=== PATIENT | male | born 1935 | race Caucasian/White ===

== ENCOUNTER 2016-02-03 08:30 | Inpatient (IN) | payer MEDICARE, MEDICAID ==
[2016-02-03 09:33] VITALS: BP 136/70
[2016-02-03 11:31] LABS: CREATINE KINASE MB 17.4 ng/mL (0.6-6.3)
--- NOTE | 2016-02-03 13:57 | History & Physical ---
The patient seen and examined. CHIEF COMPLAINT: Unable to get meaningful history. HISTORY SOURCE: Reviewing the chart, talking to the nursing staff at the [facility]. HISTORY OF PRESENT ILLNESS: An 80-year-old male who was living at home has an underlying diagnosis of Alzheimer dementia, noted to have aggressive behavior with increasing confusion. The patient was initially presented to [facility] where the patient was medically cleared and transferred here for further management. PAST MEDICAL HISTORY: ____ the chart as hyperlipidemia and osteoarthritis, but negative for diabetes, hypertension, kidney disease. MEDICATIONS AT HOME: The patient was not taking any medication. ALLERGIES: The patient was not allergic to medications. SOCIAL HISTORY: The patient was living at home. The patient has no history of any alcohol use. No smoking use. FAMILY MEDICAL HISTORY: Unavailable. REVIEW OF SYSTEMS: Unable to obtain meaningful history from the patient. PHYSICAL EXAMINATION: GENERAL: The patient is alert, awake, extremely agitated and confused. VITAL SIGNS: Temperature 98, pulse is 74, respiratory rate 18, blood pressure 157/99. SKIN: Warm to touch. HEENT: Normocephalic, atraumatic. Extraocular muscles are intact. Tongue was pink and coated. NECK: Supple, no JVD, no hepatojugular reflux. No lymphadenopathy, thyromegaly or carotid bruit. HEART: Both heart sounds are regular. No S3, no S4. CHEST: Lung equal in expansion, no wheezing, no crackles. ABDOMEN: Soft. No guarding, rigidity. Liver, spleen palpable. No palpable mass. EXTREMITIES: No edema, no cyanosis. NEUROLOGIC: Alert, awake, very hostile and moving upper and lower extremity. AVAILABLE DIAGNOSTIC DATA: White count of 6.2, hemoglobin 14.2, platelet count of 138. BUN and creatinine is ____ and 1.1. Electrolytes are normal. Calcium is 8.9. I was unable to get the patient's EKG and chest x-ray along with CT head. CLINICAL IMPRESSION: 1. Alzheimer's type dementia with agitation. 2. Hyperlipidemia. 3. Ruled out medical etiology for agitations. PLAN: 1. Admit, psychiatric evaluation and management deferred to psychiatrist. 2. B12, folate, TSH, JAMI, ESR, RA, CPK along with noncontrast CT scan of the head will be obtained as well. We will give the p.r.n. blood pressure medications as well for the hypertension. The patient's psychiatric evaluation and management is deferred to psychiatrist. The patient will be followed by us during the stay at the hospital. JOB# [id number]
[2016-02-03] MEDS: OLANZapine 5 mg Oral Disintegrating Tab PO SCH (20:57)
--- NOTE | 2016-02-04 06:07 | Psychosocial Evaluation ---
IDENTIFICATION: The patient is an 80-year-old male admitted on 5150. HISTORY OF PRESENT ILLNESS: The patient was admitted for psychiatric evaluation. He was at a residence, 911 call was placed to police officers as he was out of control, flipping over ____ hitting family members. The patient was determined by police to be suffering from dementia, lacking ability to reason. When the police arrived, the patient had limited communication, does not recognize his family. He is violent at times. He is striking out. He is taken to outside hospital for evaluation. The patient remains ____, he does not know where he lives or who he lives with. He continues to be angry, says everyone around him is conspiring against him. He is ____ himself. He is depressed, anxious, nervous, and fearful. PAST PSYCHIATRIC HISTORY: Unknown at this time. PAST MEDICAL HISTORY: Please see current records. CURRENT MEDICATIONS: No psychotropics. SOCIAL HISTORY: Reportedly he was living with family. Denies drug or alcohol. MENTAL STATUS EXAMINATION: Alert and oriented to self only. Speech is pressured and confused. Thought content is positive for paranoid delusions ____ anxious ____ extremely poor. ____ Memory testing ____ cannot cooperate any cognitive testing ____. DIAGNOSES: AXIS I: Psychosis, not otherwise specified. Dementia, Alzheimers type. AXIS II: Deferred. AXIS III: Deferred. PLAN: At this time, admit to inpatient unit for medication management, group therapy, and individual therapy. ESTIMATED LENGTH OF STAY: 7-10 days. DISCHARGE CRITERIA: Stable medications with adequate discharge plan. JOB# [id number]
[2016-02-04] MEDS: Aspirin 81mg Chewable Tab PO SCH (09:14)
[2016-02-04 10:46] LABS: CREATINE KINASE MB 17.5 ng/mL (0.6-6.3)
[2016-02-04] MEDS: OLANZapine 5 mg Oral Disintegrating Tab PO SCH (21:02)
[2016-02-05] MEDS: Aspirin 81mg Chewable Tab PO SCH ×2 (08:14→08:17)
[2016-02-05] MEDS ORDERED: Haloperidol Lactate 5 mg/mL 1mL Vial IM ONE (08:37)
--- NOTE | 2016-02-05 16:08 | Progress Notes ---
The patient is seen in the Inpatient Unit. The patient is on trial medications for severe psychosis, initiated on trial of Zyprexa with Remeron for depression. The patient continues to have poor communication skills with limited insight. He is presenting with potential dangerous behavior including trying to strike out at staff, putting objects in his pants. He is highly disorganized, does not know where he is. He is telling me that he needs to leave. He has a history of violent behavior and being destructive towards his family members. He has been hitting family. They were unable to take care of him at this time. Plan is to titrate medications for symptom relief. Continue his trial of Zyprexa, monitor for side effects including EPS, tardive dyskinesia. We will monitor his vital signs and his laboratory values as well as medical condition. Review of laboratory values indicates a CPK elevated at 944, CK-MB of 17. We will refer to medical physical for followup. He is afebrile at this time, however. We will work with the patient and his family regarding after care planing, recommend supportive care and supervision following discharge, consider [facility] facility. We will work closely with his family to integrate services. We will place the patient on a 14-day hold for grave disability, monitor for aggression and side effects of medication. JOB# [id number]
[2016-02-05] MEDS: OLANZapine 5 mg Oral Disintegrating Tab PO SCH (20:52)
--- NOTE | 2016-02-06 08:34 | Progress Notes ---
The patient is seen in the inpatient unit. The patient is on a trial of medications for psychotic features. He is extremely irritable, still violent, trying to break things or get out of his bed and striking out. He is aggressive, threatening to assault peers and staff. He is very demanding, argumentative. He says he wants to leave, does not know where to go. MENTAL STATUS EXAMINATION: He is oriented to time and self only. Speech is minimal and confused. Thought content is positive for paranoid delusions, ____ and history of aggression, threatening to assault people in his home. Family cannot take care of him given his threatening behavior and destruction of property. At this time, he ____ want to take medications, on trial of Zyprexa, he has no side effects. He has received p.r.n. Haldol for aggressive behavior, for escalation, he has had no side effects, except for sedation. Neurologic exam is nonfocal. He does have some mild tremor. It is difficult to determine tremor as he is not cooperative with examination as he is persistently agitated. Status at this time is 5350, 14-day hold. PLAN: Titrate Zyprexa to 5 mg at bedtime and monitor for side effects including sedation, change in appetite, energy or focus and control psychosis. He may benefit from a stabilizing agent or an antianxiety agent given his high level of agitation. We encouraged compliance, work with him in group therapy and individual therapy. I met with social work to assess care planning. Family indicates they are unable to have him return home at this time given his escalation in behavior. We will consider placement at an appropriate long-term facility following stabilization. [facility]# [id number]
[2016-02-06] MEDS: Aspirin 81mg Chewable Tab PO SCH (09:36)
[2016-02-06 13:26] LABS: ANION GAP 11.2 (7.0-16.0); BUN - UREA NITROGEN 39 mg/dL (7-25); BUN/CREATININE RATIO 32.5; CALCIUM SERUM 9.8 mg/dL (8.6-10.3); CARBON DIOXIDE 28.9 mEq/L (21.0-31.0); CHLORIDE 105 mEq/L (98-107); CREATININE - SERUM 1.2 mg/dL (0.7-1.3); GLUCOSE 104 mg/dL (70-105); POTASSIUM SERUM 4.1 mEq/L (3.5-5.1); SODIUM SERUM 141 mEq/L (136-145)
[2016-02-06 14:23] LABS: CREATINE KINASE MB 46.3 ng/mL (0.6-6.3)
[2016-02-06] MEDS: OLANZapine 5 mg Oral Disintegrating Tab PO SCH (20:36)
--- NOTE | 2016-02-06 21:15 | Progress Notes ---
SUBJECTIVE: The patient was seen, discussed with staff, and chart reviewed. Remains anxious, guarded, still irritable, and somewhat paranoid. The patient, however, is taking his medications, has no side effects. The patient remains confused and forgetful, poor memory testing. ASSESSMENT: Psychosis, not otherwise specified, dementia, Alzheimer's type. PLAN: We will continue medication management, continue stabilization, and continue supportive measures. Continue Zyprexa 5 mg p.o. at bedtime. [facility]# [id number]
[2016-02-07] MEDS: Aspirin 81mg Chewable Tab PO SCH (09:41)
--- NOTE | 2016-02-07 12:46 | General Progress Note ---
Subjective - Review of Systems Subjective: PATIENT IS SEEN AND EXAMINED. UNABLE TO GET MEANINGFUL HISTORY. AMBULATING. Objective - Results Result Diagrams: 02/06/16 12:39 Recent Labs: Laboratory Last Values ESR 5 mm/hr (0-20) 02/03/16 10:30 Sodium 141 mEq/L (136-145) 02/06/16 12:39 Potassium 4.1 mEq/L (3.5-5.1) 02/06/16 12:39 Chloride 105 mEq/L (98-107) 02/06/16 12:39 Carbon Dioxide 28.9 mEq/L (21.0-31.0) 02/06/16 12:39 Anion Gap 11.2 (7.0-16.0) 02/06/16 12:39 BUN 39 mg/dL (7-25) H 02/06/16 12:39 Creatinine 1.2 mg/dL (0.7-1.3) 02/06/16 12:39 Est GFR ( Amer) TNP 02/06/16 12:39 Est GFR (Non-Af Amer) TNP 02/06/16 12:39 BUN/Creatinine Ratio 32.5 02/06/16 12:39 Glucose 104 mg/dL (70-105) 02/06/16 12:39 Calcium 9.8 mg/dL (8.6-10.3) 02/06/16 12:39 Creatine Kinase 791 U/L (30-223) H 02/07/16 07:48 CK-MB (CK-2) 28.0 ng/mL (0.6-6.3) H 02/07/16 07:48 Vitamin B12 1058 pg/mL (211-946) H 02/03/16 10:30 Folic Acid 20.0 ng/mL (>3.0) 02/03/16 10:30 TSH 4.40 uIU/ml (0.34-5.60) 02/03/16 10:30 JAMI Screen Negative 02/03/16 10:30 RPR NONREACTIVE (NONREACTIVE) 02/03/16 10:30 - Physical Exam Vitals and I&O: Vital Signs Temp 98.3 F 02/06/16 15:44 Pulse 83 02/07/16 09:41 Resp 19 02/06/16 15:44 BP 135/65 02/07/16 09:41 Pulse Ox 97 02/06/16 15:44 Intake & Output 02/06/16 02/07/16 02/07/16 18:59 06:59 18:59 Intake Total 500 Balance 500 Intake: Oral 500 Other: # Voids 3 # Bowel Movements 1 Active Medications: Current Medications Acetaminophen (Tylenol) 650 mg PO Q6H PRN PRN Reason: Pain (Mild) Stop: 04/03/16 10:07 Aspirin (Aspirin Chewable) 81 mg PO DAILY [facility] Stop: 04/04/16 08:59 Last Admin: 02/07/16 09:41 Dose: 81 mg Lisinopril (Zestril) 2.5 mg PO DAILY [facility] Stop: 04/04/16 08:59 Last Admin: 02/07/16 09:41 Dose: 2.5 mg Olanzapine (Zyprexa Zydis) 5 mg PO HS [facility] PRN Reason: Protocol Stop: 04/05/16 11:28 Last Admin: 02/06/16 20:36 Dose: 5 mg General: Alert, No acute distress HEENT: Atraumatic, PERRLA, EOMI Neck: Supple, JVD Cardiovascular: Regular rate, Normal S1, Normal S2 Lungs: Clear to auscultation Abdomen: Bowel sounds, Soft Neurological: Normal gait Skin: Other (No bruises.) Psych/Mental Status: Other (Labile.) Assessment/Plan - Assessment Assessment: RHABDOMYOLYSIS. ALZHEIMER'S DEMENTIA. DJD HTN PSYCHOSIS FALL RISK - Plan Plan: PLENTY OF ORALLY FLUIDS. PSYCH MEDS PSYCH FOLLOW UP FOLLOW LAB GENERAL NURSING CARE MEDICAL THERAPY FOR MEDICAL ILLNESS. CONTINUE CURRENT CARE. DISCUSSED WITH STAFF.
[2016-02-07] MEDS: OLANZapine 5 mg Oral Disintegrating Tab PO SCH (20:37)
--- NOTE | 2016-02-08 04:48 | Progress Notes ---
SUBJECTIVE: The patient was seen, discussed with staff, chart is reviewed. Still anxious, guarded, still irritable, some mood swings, episodes of agitations, remains unpredictable; however, on the other hand, he is taking his medication, sleep is fair, his appetite is fair. His vital signs are stable. The patient's insight remains poor. Judgment is still impaired. ASSESSMENT: The patient continues to stabilize in a setting. PLAN: Continue medication management. Continue supportive measures. Continue Zyprexa 5 mg p.o. at bedtime. JOB# [id number]
[2016-02-08] MEDS: Aspirin 81mg Chewable Tab PO SCH (08:26)
--- NOTE | 2016-02-08 08:49 | General Progress Note ---
Subjective - Review of Systems Subjective: PATIENT IS SEEN AND EXAMINED. UNABLE TO GET MEANINGFUL HISTORY. Objective - Results Result Diagrams: 02/06/16 12:39 Recent Labs: Laboratory Last Values ESR 5 mm/hr (0-20) 02/03/16 10:30 Sodium 141 mEq/L (136-145) 02/06/16 12:39 Potassium 4.1 mEq/L (3.5-5.1) 02/06/16 12:39 Chloride 105 mEq/L (98-107) 02/06/16 12:39 Carbon Dioxide 28.9 mEq/L (21.0-31.0) 02/06/16 12:39 Anion Gap 11.2 (7.0-16.0) 02/06/16 12:39 BUN 39 mg/dL (7-25) H 02/06/16 12:39 Creatinine 1.2 mg/dL (0.7-1.3) 02/06/16 12:39 Est GFR ( Amer) TNP 02/06/16 12:39 Est GFR (Non-Af Amer) TNP 02/06/16 12:39 BUN/Creatinine Ratio 32.5 02/06/16 12:39 Glucose 104 mg/dL (70-105) 02/06/16 12:39 Calcium 9.8 mg/dL (8.6-10.3) 02/06/16 12:39 Creatine Kinase 791 U/L (30-223) H 02/07/16 07:48 CK-MB (CK-2) 28.0 ng/mL (0.6-6.3) H 02/07/16 07:48 Vitamin B12 1058 pg/mL (211-946) H 02/03/16 10:30 Folic Acid 20.0 ng/mL (>3.0) 02/03/16 10:30 TSH 4.40 uIU/ml (0.34-5.60) 02/03/16 10:30 JAMI Screen Negative 02/03/16 10:30 RPR NONREACTIVE (NONREACTIVE) 02/03/16 10:30 - Physical Exam Vitals and I&O: Vital Signs Temp 0 F 02/08/16 06:14 Pulse 81 02/08/16 08:26 Resp 20 02/07/16 16:08 BP 130/62 02/08/16 08:26 Pulse Ox 97 02/07/16 16:08 Intake & Output 02/07/16 02/08/16 02/08/16 18:59 06:59 18:59 Intake Total 1000 0 Balance 1000 0 Intake: Oral 1000 0 Other: # Voids 3 4 # Bowel Movements 1 0 Stool Characteristics Soft Formed Active Medications: Current Medications Acetaminophen (Tylenol) 650 mg PO Q6H PRN PRN Reason: Pain (Mild) Stop: 04/03/16 10:07 Aspirin (Aspirin Chewable) 81 mg PO DAILY [facility] Stop: 04/04/16 08:59 Last Admin: 02/08/16 08:26 Dose: 81 mg Lisinopril (Zestril) 2.5 mg PO DAILY [facility] Stop: 04/04/16 08:59 Last Admin: 02/08/16 08:26 Dose: 2.5 mg Olanzapine (Zyprexa Zydis) 5 mg PO HS [facility] PRN Reason: Protocol Stop: 04/05/16 11:28 Last Admin: 02/07/16 20:37 Dose: 5 mg General: Alert, No acute distress HEENT: Atraumatic, PERRLA, EOMI Neck: Supple Cardiovascular: Regular rate, Normal S1, Normal S2 Lungs: Clear to auscultation Abdomen: Bowel sounds, Soft Extremities: Other (no edema.) Assessment/Plan - Assessment Assessment: RHABDOMYOLYSIS. ALZHEIMER'S DEMENTIA. DJD HTN PSYCHOSIS FALL RISK - Plan Plan: PLENTY OF ORALLY FLUIDS. PSYCH MEDS. PSYCH FOLLOW UP. FOLLOW LAB. GENERAL NURSING CARE MEDICAL THERAPY FOR MEDICAL ILLNESS. CONTINUE CURRENT CARE. DISCUSSED WITH STAFF.
[2016-02-08] MEDS: OLANZapine 5 mg Oral Disintegrating Tab PO SCH (20:08)
[2016-02-09] MEDS: Aspirin 81mg Chewable Tab PO SCH (09:17)
--- NOTE | 2016-02-09 13:41 | Progress Notes ---
The patient is seen in inpatient unit. The patient is on a trial of medications for acute psychosis, severe agitation, irritability, labile mood. He is still ____ confused, very demanding, argumentative, restless. He has no ____ care for himself, minimal insight. We will be monitoring medications, monitoring vital signs and neurologic status. Most recent vital signs are stable. He has no change in temperature. Temperature is 97.6 and blood pressure 126/69. Review of systems is negative for complaints. PLAN: At this time, we will continue to trial of Zyprexa, monitor for psychotic features, for resistance to care and for side effects of medication. JOB# [id number]
[2016-02-09] MEDS: OLANZapine 5 mg Oral Disintegrating Tab PO SCH (17:43)
[2016-02-10] MEDS: OLANZapine 5 mg Oral Disintegrating Tab PO SCH ×2 (08:19→17:47)
[2016-02-10] MEDS: Aspirin 81mg Chewable Tab PO SCH (08:19)
--- NOTE | 2016-02-10 09:17 | General Progress Note ---
Subjective - Review of Systems Subjective: PATIENT IS SEEN AND EXAMINED. UNABLE TO GET MEANINGFUL HISTORY. FAMILY IS ASKING ABOUT,CT RRESULT. IT WAS NOT DONE. Objective - Results Result Diagrams: 02/06/16 12:39 Recent Labs: Laboratory Last Values ESR 5 mm/hr (0-20) 02/03/16 10:30 Sodium 141 mEq/L (136-145) 02/06/16 12:39 Potassium 4.1 mEq/L (3.5-5.1) 02/06/16 12:39 Chloride 105 mEq/L (98-107) 02/06/16 12:39 Carbon Dioxide 28.9 mEq/L (21.0-31.0) 02/06/16 12:39 Anion Gap 11.2 (7.0-16.0) 02/06/16 12:39 BUN 39 mg/dL (7-25) H 02/06/16 12:39 Creatinine 1.2 mg/dL (0.7-1.3) 02/06/16 12:39 Est GFR ( Amer) TNP 02/06/16 12:39 Est GFR (Non-Af Amer) TNP 02/06/16 12:39 BUN/Creatinine Ratio 32.5 02/06/16 12:39 Glucose 104 mg/dL (70-105) 02/06/16 12:39 Calcium 9.8 mg/dL (8.6-10.3) 02/06/16 12:39 Creatine Kinase 791 U/L (30-223) H 02/07/16 07:48 CK-MB (CK-2) 28.0 ng/mL (0.6-6.3) H 02/07/16 07:48 Vitamin B12 1058 pg/mL (211-946) H 02/03/16 10:30 Folic Acid 20.0 ng/mL (>3.0) 02/03/16 10:30 TSH 4.40 uIU/ml (0.34-5.60) 02/03/16 10:30 JAMI Screen Negative 02/03/16 10:30 RPR NONREACTIVE (NONREACTIVE) 02/03/16 10:30 - Physical Exam Vitals and I&O: Vital Signs Temp 0 F 02/10/16 06:27 Pulse 78 02/09/16 09:20 Resp 18 02/09/16 06:19 BP 110/68 02/09/16 09:20 Pulse Ox 98 02/09/16 06:19 Intake & Output 02/09/16 02/10/16 02/10/16 18:59 06:59 18:59 Intake Total 800 120 Balance 800 120 Intake: Oral 800 120 Other: # Voids 3 4 # Bowel Movements 1 0 Active Medications: Current Medications Acetaminophen (Tylenol) 650 mg PO Q6H PRN PRN Reason: Pain (Mild) Stop: 04/03/16 10:07 Aspirin (Aspirin Chewable) 81 mg PO DAILY [facility] Stop: 04/04/16 08:59 Last Admin: 02/10/16 08:19 Dose: 81 mg Lisinopril (Zestril) 2.5 mg PO DAILY [facility] Stop: 04/04/16 08:59 Last Admin: 02/10/16 08:19 Dose: Not Given Olanzapine (Zyprexa Zydis) 5 mg PO BID [facility] PRN Reason: Protocol Stop: 04/09/16 16:59 Last Admin: 02/10/16 08:19 Dose: 5 mg General: Alert, No acute distress HEENT: Atraumatic, PERRLA, EOMI, Mucous membr. moist/pink Neck: Supple, JVD Cardiovascular: Regular rate, Normal S1, Normal S2 Lungs: Clear to auscultation Abdomen: Bowel sounds Neurological: Normal gait Assessment/Plan - Assessment Assessment: RHABDOMYOLYSIS. ALZHEIMER'S DEMENTIA. DJD HTN PSYCHOSIS FALL RISK - Plan Plan: PLENTY OF ORALLY FLUIDS. PSYCH MEDS. PSYCH FOLLOW UP. FOLLOW LAB. GENERAL NURSING CARE MEDICAL THERAPY FOR MEDICAL ILLNESS. CONTINUE CURRENT CARE. DISCUSSED WITH STAFF.
[2016-02-10 09:45] LABS: HEMATOCRIT 45.5 % (39.0-49.0); HEMOGLOBIN 15.6 gm/dL (12.6-17.4); MEAN CELL VOLUME 87.6 fl (80-99); MEAN CORPUSCULAR HEMOGLOBIN 30.1 pg (27.0-31.0); MEAN CORPUSCULAR HGB CONC 34.3 pg (28.0-36.0); MEAN PLATELET VOLUME 9.4 fl; PLATELET COUNT 135 Th/cmm (150-400); RED CELL DISTRIBUTION WIDTH 12.9 % (11.5-20.0); WHITE BLOOD COUNT 6.3 Th/cmm (4.8-10.8)
[2016-02-10 10:08] LABS: BAND NEUTROPHILE 0 % (0-10); NEUTROPHILS 40 % (40-80); TOTAL CELLS COUNTED 100
[2016-02-10 10:26] LABS: ALB/GLOB RATIO 1.3 (1.0-1.8); ALKALINE PHOSPHATASE 47 U/L (34-104); BUN - UREA NITROGEN 32 mg/dL (7-25); BUN/CREATININE RATIO 26.7; CALCIUM SERUM 10.1 mg/dL (8.6-10.3); CARBON DIOXIDE 29.9 mEq/L (21.0-31.0); CHLORIDE 101 mEq/L (98-107); CREATININE - SERUM 1.2 mg/dL (0.7-1.3); GLUCOSE 98 mg/dL (70-105); SGOT 35 U/L (13-39); SGPT/ALT 19 U/L (7-52); SODIUM SERUM 138 mEq/L (136-145)
[2016-02-10 10:32] LABS: POTASSIUM SERUM 3.9 mEq/L (3.5-5.1)
[2016-02-10 10:49] LABS: CREATINE KINASE MB 17.8 ng/mL (0.6-6.3)
--- NOTE | 2016-02-10 11:57 | Progress Notes ---
The patient was seen on inpatient unit. He has severe psychosis. He is confused, agitated, irritable, and aggressive, at times labile, other times aggressive, destroying property. He was given a lunch tray. He took everything on it and threw it on the floor and destroyed everything on it, tearing it up into small pieces. He is at times pounding on staff and needs redirection constantly. He is on trial of Zyprexa. He has no side effects, no sedation, and no EPS. His vital signs are stable. Plan is to titrate the Zyprexa to 5 mg b.i.d. for acute psychosis. To work with the patient on his coping skills, on his redirectability and his agitation. We will continue to work with the patient and his family regarding aftercare planning. Met with social work and psychologist regarding [facility]pc care and goal, stabilization and placement. It is unclear if he can return home to family given his disposition towards aggression. JOB# [id number]
--- NOTE | 2016-02-11 07:58 | Progress Notes ---
The patient is seen in inpatient unit. The patient is still highly agitated, restless. He is still physically resistive towards care. At times, pushing people, grabbing things, taking things that do not belong to him, raising his voice, escalating. He is highly agitated, restless and confused. He is still easily agitated and aggressive, combative, talking to self and coherent, cannot take care of himself, ____ self care. He ____ at this time. He is on Zyprexa, titrated to 5 mg b.i.d. Continue to monitor for response to medication, continue augmentation with additional medications ____. JOB# [id number]
[2016-02-11] MEDS: OLANZapine 5 mg Oral Disintegrating Tab PO SCH ×2 (08:17→17:26)
[2016-02-11] MEDS: Aspirin 81mg Chewable Tab PO SCH (08:17)
--- NOTE | 2016-02-11 09:00 | General Progress Note ---
Subjective - Review of Systems Subjective: PATIENT IS SEEN AND EXAMINED. UNABLE TO GET MEANINGFUL HISTORY. Objective - Results Result Diagrams: 02/10/16 09:30 02/10/16 09:30 Recent Labs: Laboratory Last Values WBC 6.3 Th/cmm (4.8-10.8) 02/10/16 09:30 RBC 5.20 Mil/cmm (3.80-5.80) 02/10/16 09:30 Hgb 15.6 gm/dL (12.6-17.4) 02/10/16 09:30 Hct 45.5 % (39.0-49.0) 02/10/16 09:30 MCV 87.6 fl (80-99) 02/10/16 09:30 MCH 30.1 pg (27.0-31.0) 02/10/16 09:30 MCHC Differential 34.3 pg (28.0-36.0) 02/10/16 09:30 RDW 12.9 % (11.5-20.0) 02/10/16 09:30 Plt Count 135 Th/cmm (150-400) L 02/10/16 09:30 MPV 9.4 fl 02/10/16 09:30 Band Neutrophils % 0 % (0-10) 02/10/16 09:30 Neutrophils (Manual) 40 % (40-80) 02/10/16 09:30 Lymphocytes 45 % (20-50) 02/10/16 09:30 Monocytes 15 % (2-10) H 02/10/16 09:30 ESR 5 mm/hr (0-20) 02/03/16 10:30 Sodium 138 mEq/L (136-145) 02/10/16 09:30 Potassium 3.9 mEq/L (3.5-5.1) 02/10/16 09:30 Chloride 101 mEq/L (98-107) 02/10/16 09:30 Carbon Dioxide 29.9 mEq/L (21.0-31.0) 02/10/16 09:30 Anion Gap 11.0 (7.0-16.0) 02/10/16 09:30 BUN 32 mg/dL (7-25) H 02/10/16 09:30 Creatinine 1.2 mg/dL (0.7-1.3) 02/10/16 09:30 Est GFR ( Amer) TNP 02/10/16 09:30 Est GFR (Non-Af Amer) TNP 02/10/16 09:30 BUN/Creatinine Ratio 26.7 02/10/16 09:30 Glucose 98 mg/dL (70-105) 02/10/16 09:30 Calcium 10.1 mg/dL (8.6-10.3) 02/10/16 09:30 Total Bilirubin 1.0 mg/dL (0.3-1.0) 02/10/16 09:30 AST 35 U/L (13-39) 02/10/16 09:30 ALT 19 U/L (7-52) 02/10/16 09:30 Alkaline Phosphatase 47 U/L (34-104) 02/10/16 09:30 Creatine Kinase 370 U/L (30-223) H 02/10/16 09:30 CK-MB (CK-2) 17.8 ng/mL (0.6-6.3) H 02/10/16 09:30 Total Protein 7.8 gm/dL (6.0-8.3) 02/10/16 09:30 Albumin 4.4 gm/dL (4.2-5.5) 02/10/16 09:30 Globulin 3.4 gm/dL 02/10/16 09:30 Albumin/Globulin Ratio 1.3 (1.0-1.8) 02/10/16 09:30 Vitamin B12 1058 pg/mL (211-946) H 02/03/16 10:30 Folic Acid 20.0 ng/mL (>3.0) 02/03/16 10:30 TSH 4.40 uIU/ml (0.34-5.60) 02/03/16 10:30 JAMI Screen Negative 02/03/16 10:30 RPR NONREACTIVE (NONREACTIVE) 02/03/16 10:30 - Physical Exam Vitals and I&O: Vital Signs Temp 97.9 F 02/10/16 15:59 Pulse 99 02/10/16 15:59 Resp 21 02/10/16 15:59 BP 104/60 02/10/16 15:59 Pulse Ox 98 02/10/16 15:59 Intake & Output 02/10/16 02/11/16 02/11/16 18:59 06:59 18:59 Intake Total 1200 Balance 1200 Intake: Oral 1200 Active Medications: Current Medications Acetaminophen (Tylenol) 650 mg PO Q6H PRN PRN Reason: Pain (Mild) Stop: 04/03/16 10:07 Aspirin (Aspirin Chewable) 81 mg PO DAILY [facility] Stop: 04/04/16 08:59 Last Admin: 02/11/16 08:17 Dose: 81 mg Lisinopril (Zestril) 2.5 mg PO DAILY [facility] Stop: 04/04/16 08:59 Last Admin: 02/11/16 08:18 Dose: Not Given Olanzapine (Zyprexa Zydis) 5 mg PO BID [facility] PRN Reason: Protocol Stop: 04/09/16 16:59 Last Admin: 02/11/16 08:17 Dose: 5 mg General: Alert, Cooperative, No acute distress HEENT: Atraumatic, PERRLA, EOMI Neck: Supple Cardiovascular: Regular rate, Normal S1, Normal S2 Lungs: Clear to auscultation Abdomen: Bowel sounds, Soft Neurological: Normal gait Assessment/Plan - Assessment Assessment: RHABDOMYOLYSIS. ALZHEIMER'S DEMENTIA. DJD HTN PSYCHOSIS FALL RISK - Plan Plan: PLENTY OF ORALLY FLUIDS. PSYCH MEDS. PSYCH FOLLOW UP. FOLLOW LAB. GENERAL NURSING CARE MEDICAL THERAPY FOR MEDICAL ILLNESS. CONTINUE CURRENT CARE. DISCUSSED WITH STAFF.
--- NOTE | 2016-02-12 07:12 | Progress Notes ---
The patient was seen in inpatient unit. The patient continues to be highly agitated, irritable and confused. The patient has been wondering, has aggressive behavior, striking out, pushing at people, wondering at ____ room, taking their belongings. He can be verbally abusing because of high levels of aggression and redirectibility. He is on trial of Zyprexa. He has no side effects. He has had some improvement, but remains highly agitated. We will provide Depakote for wrinkles 250 mg t.i.d. and continue close observation. JOB# [id number]
[2016-02-12] MEDS: Aspirin 81mg Chewable Tab PO SCH (08:46)
[2016-02-12] MEDS: OLANZapine 5 mg Oral Disintegrating Tab PO SCH ×2 (08:47→17:22)
--- NOTE | 2016-02-13 05:45 | Progress Notes ---
PSYCHIATRIC PROGRESS NOTE TIME THE PATIENT SEEN: 5:30 p.m. SUBJECTIVE: Staff was spoken to. The patient is interviewed. Mood is noted to be irritable. Affect is constricted. Insight and judgment are noted to be very much impaired. Impulse control is noted to be poor. The patient is a total-care patient. The patient has to be redirected constantly. The patient has been having both short-term as well as long-term memory problems. The patient is currently on olanzapine 5 mg twice a day for his paranoia. PLAN: To continue the patient with the supportive therapy. I encouraged the patient to verbalize the concerns rather than to act out. The patient is not ready to be discharged to a lower level of care in view of his agitated behavior. JOB# [id number]
[2016-02-13] MEDS: OLANZapine 5 mg Oral Disintegrating Tab PO SCH ×2 (09:16→21:26)
[2016-02-13] MEDS: Aspirin 81mg Chewable Tab PO SCH (09:16)
--- NOTE | 2016-02-14 01:09 | Progress Notes ---
TIME PATIENT SEEN: 08:45 a.m. SUBJECTIVE: Staff was spoken to. The patient is interviewed. Mood is noted to be dysphoric. Coping skills are noted to be very poor. Sleep and appetite also noted to be poor. The patient has been isolative and withdrawn. The patient needs to be redirected. Whenever he is getting into the groups, he is very dysphoric and intrusive. ASSESSMENT: The patient is very disorganized and dysphoric and demented. PLAN: To decrease the dose on the Zyprexa to 5 mg only because of the high fall risk. JOB# [id number]
--- NOTE | 2016-02-14 01:40 | Progress Notes ---
IDENTIFICATION: An 80-year-old male. The patient is seen and examined. Unable to get meaningful history. The patient is ambulatory. PHYSICAL EXAMINATION: VITAL SIGNS: Temperature 97, pulse is 64, respiratory rate 18 and blood pressure 130/70. SKIN: Warm to touch. HEENT: No facial asymmetry. NECK: Supple. No JVD. HEART: Regular. No murmur. CHEST AND LUNGS: Equal in expansion. No wheezing and no crackles. ABDOMEN: Soft. No guarding and no rigidity. Bowel sounds are present. No palpable mass. EXTREMITIES: No edema. NEUROLOGIC: Alert, awake, follows commands, moving upper and lower extremities. CLINICAL IMPRESSION: 1. Rhabdomyolysis, resolving. 2. Hypertension. 3. DJD. 4. Psychotic disorder. 5. CVA prophylaxis. PLAN: 1. Aspirin. 2. Lisinopril. 3. Zyprexa. 4. Depakote. 5. Tylenol. 6. General nursing care. 7. Fall precautions. 8. Followup visit as scheduled. JOB# [id number]
[2016-02-14] MEDS: Aspirin 81mg Chewable Tab PO SCH (12:25)
[2016-02-14] MEDS: OLANZapine 5 mg Oral Disintegrating Tab PO SCH (21:29)
--- NOTE | 2016-02-15 01:40 | Progress Notes ---
PSYCHIATRIC PROGRESS NOTE TIME PATIENT SEEN: 11:15 a.m. SUBJECTIVE: Staff was spoken to. The patient is interviewed. Mood is noted to be irritable. Affect is constricted. The patient is pacing most of the time. Coping skills are noted to be poor. Sleep and appetite are also noted to be poor. The patient is confused and needs to be redirected because of the falls. The patient's Zyprexa has been decreased to 5 mg at bedtime. The patient so far has been able to tolerate the medication. Vital signs are stable. ASSESSMENT: The patient is still psychotic and demented. PLAN: To continue the patient with supportive therapy and followup. JOB# [id number]
[2016-02-15] MEDS: Aspirin 81mg Chewable Tab PO SCH (09:24)
[2016-02-15] MEDS: OLANZapine 5 mg Oral Disintegrating Tab PO SCH (21:06)
[2016-02-16] MEDS: Aspirin 81mg Chewable Tab PO SCH (09:16)
--- NOTE | 2016-02-16 09:28 | Progress Notes ---
The patient is seen in inpatient unit. The patient is on trial of Zyprexa for psychosis, Depakote for mood instability. He remains argumentative, restless and confused, still demanding, still continues to be unable to contract for safety. He needs at times isolation to prevent aggressive behavior towards peers and staff. He has been threatening to strike out, taking belongings, taking articles of food or trays and ____ them up. He is at times yelling and raising his voice. He is still confused. No placement. He is still incoherent, cannot respond despite interview with Dominican-speaking shot hole driller in [place] or [place]. He remains confused and disorganized. He remains on 14-day hold. Plan is to adjust medications, increase Depakote to 500 mg b.i.d. We will check Depakote level in 48-72 hours. Continue Zyprexa for his psychosis. He has no falls, no EPS or tardive dyskinesia. No dystonic reaction is noted. No akathisia. JOB# [id number]
[2016-02-16] MEDS: OLANZapine 5 mg Oral Disintegrating Tab PO SCH (20:47)
--- NOTE | 2016-02-17 03:28 | Progress Notes ---
PSYCHIATRIC PROGRESS NOTE TIME PATIENT SEEN: 5:15 p.m. SUBJECTIVE: Staff was spoken to. The patient is interviewed. Mood is noted to be irritable. Affect is constricted. Coping skills are noted to be still poor. Sleep and appetite are also noted to be poor. The patient has been having difficult time to cope with the stress. The patient is confused and pacing most of the time on the unit. No side effects to the medications are noted. The patient is currently on 5 mg of Zyprexa and is able to tolerate the medication. ASSESSMENT: The patient is still psychotic. PLAN: To continue the patient with the supportive therapy and follow up. JOB# [id number]
[2016-02-17] MEDS: Aspirin 81mg Chewable Tab PO SCH (08:54)
[2016-02-17] MEDS: OLANZapine 5 mg Oral Disintegrating Tab PO SCH (20:37)
[2016-02-18] MEDS: Aspirin 81mg Chewable Tab PO SCH (08:13)
[2016-02-18] MEDS ORDERED: Haloperidol Lactate 5 mg/mL 1mL Vial IM PRN (12:27)
[2016-02-18] MEDS ORDERED: Haloperidol Lactate 5 mg/mL 1mL Vial ONE (12:28)
[2016-02-18] MEDS ORDERED: Haloperidol Lactate 5 mg/mL 1mL Vial IM ONE (12:35)
--- NOTE | 2016-02-18 18:25 | Progress Notes ---
The patient is seen in inpatient unit. He has irritability, labile mood, paranoia and confusion. He is still disorganized, restless, has some bizarre behavior. He is aggressive at times, resisting care. He is on trial of Depakote for mood instability, Zyprexa for psychotic features. We are monitoring for side effects of medication. We will check Depakote level and titrate to therapeutic dosing. Continue close observation and monitor vital signs. JOB# [id number]
[2016-02-18] MEDS: OLANZapine 5 mg Oral Disintegrating Tab PO SCH (20:24)
[2016-02-19 07:53] LABS: SGOT 53 U/L (13-39); SGPT/ALT 19 U/L (7-52)
[2016-02-19 08:20] LABS: ALB/GLOB RATIO 1.5 (1.0-1.8); ALKALINE PHOSPHATASE 58 U/L (34-104); ANION GAP 14.9 (7.0-16.0); BILIRUBIN,TOTAL 0.9 mg/dL (0.3-1.0); BUN - UREA NITROGEN 25 mg/dL (7-25); BUN/CREATININE RATIO 20.8; CALCIUM SERUM 9.6 mg/dL (8.6-10.3); CARBON DIOXIDE 28.1 mEq/L (21.0-31.0); CHLORIDE 99 mEq/L (98-107); CREATININE - SERUM 1.2 mg/dL (0.7-1.3); GLUCOSE 94 mg/dL (70-105); SGOT 52 U/L (13-39); SGPT/ALT 20 U/L (7-52); SODIUM SERUM 138 mEq/L (136-145)
--- NOTE | 2016-02-19 08:21 | Progress Notes ---
The patient is seen in inpatient unit. The patient continues to have agitation, irritability. At times, he appears mildly sedated. At other times, he is aggressive and striking out, confrontational with peers and staff, highly irritable, needs redirection. He received emergency dose of medications today of Haldol and Ativan for escalation of violent behavior. At this time, we are continuing to adjust Zyprexa and Depakote for mood instability and psychosis, for paranoia. Monitor neurologic status for side effects. Vital signs are stable. He has no hypertension, ____ blood pressure was 128/80. PLAN: Plan at this time is to increase Zyprexa to 2.5 mg q.a.m. and 5 mg every bedtime, to continue Depakote at 500 b.i.d. and check a.m. Depakote level with liver function tests and CBC, to place on 30-day certification due to his continued grave disability. We will continue to monitor him daily for progress and solutions. [facility]# [id number]
[2016-02-19 08:32] LABS: HEMATOCRIT 48.1 % (39.0-49.0); HEMOGLOBIN 16.3 gm/dL (12.6-17.4); MEAN CELL VOLUME 89.4 fl (80-99); MEAN CORPUSCULAR HEMOGLOBIN 30.2 pg (27.0-31.0); MEAN CORPUSCULAR HGB CONC 33.8 pg (28.0-36.0); MEAN PLATELET VOLUME 10.7 fl; RED BLOOD COUNT 5.38 Mil/cmm (3.80-5.80); RED CELL DISTRIBUTION WIDTH 12.6 % (11.5-20.0); WHITE BLOOD COUNT 7.1 Th/cmm (4.8-10.8)
[2016-02-19 08:34] LABS: PLATELET COUNT 106 Th/cmm (150-400)
[2016-02-19 08:35] LABS: % EOSINOPHILS 5.1 % (0.0-5.0); % LYMPHOCYTES 23.2 % (20.0-50.0); % MONOCYTES 6.3 % (2.0-10.0); % NEUTROPHILS 60.4 % (40.0-80.0); NEUTROPHILE ABSOLUTE 4.3 Th/cmm (1.8-8.0)
[2016-02-19] MEDS: Aspirin 81mg Chewable Tab PO SCH (08:44)
[2016-02-19 09:02] LABS: CREATINE KINASE MB 21.7 ng/mL (0.6-6.3)
[2016-02-19] MEDS: OLANZapine 5 mg Oral Disintegrating Tab PO SCH (20:57)
--- NOTE | 2016-02-20 01:49 | Progress Notes ---
TIME PATIENT SEEN: 07:45 a.m. SUBJECTIVE: Staff was spoken to. The patient is interviewed. Mood is noted to be dysphoric. Coping skills are noted to be poor. The patient is getting very agitated and aggressive. The patient's family wants the patient to be sedated rather than being irritable and angry. Coping skills at this time are noted to be poor. Sleep and appetite are also noted to be poor. No side effects to the medications are noted. ASSESSMENT: The patient is still impulsive. PLAN: To continue the patient with a Depakote and Zyprexa and follow the patient up. JOB# [id number]
[2016-02-20] MEDS: Aspirin 81mg Chewable Tab PO SCH (09:08)
[2016-02-20] MEDS: OLANZapine 5 mg Oral Disintegrating Tab PO SCH (20:53)
--- NOTE | 2016-02-21 01:48 | Progress Notes ---
TIME PATIENT SEEN: 2:00 p.m. SUBJECTIVE: Staff was spoken to. The patient is interviewed. Mood is noted to be irritable. Affect is constricted. Coping skills are noted to be very poor. Sleep and appetite are also noted to be poor. The patient has been having a difficult time to cope with his stress. The patient is actively responding to internal stimuli and has been looking for something that is not there. The patient has been trying to brush his clothing and the patient is also reported to have been just getting into other people's rooms. ASSESSMENT: The patient is still psychotic. PLAN: To continue the patient with the current medications and follow up and closely monitor the patient. JOB# [id number]
[2016-02-21] MEDS: Aspirin 81mg Chewable Tab PO SCH (09:29)
[2016-02-21] MEDS: OLANZapine 5 mg Oral Disintegrating Tab PO SCH (20:48)
--- NOTE | 2016-02-22 00:40 | Progress Notes ---
PSYCHIATRIC PROGRESS NOTE TIME PATIENT SEEN: 2:00 p.m. SUBJECTIVE: Staff was spoken to. The patient is interviewed. Mood is noted to be dysphoric. The patient is reported to have been having diarrhea. The patient is being closely monitored. The patient's coping skills are noted to be extremely poor. The patient has been getting into other people's problems and needs to be redirected. No side effects to the medications are noted. ASSESSMENT: The patient is still psychotic, demented, and impulsive. PLAN: To continue the patient with the current medications and follow. JOB# [id number]
[2016-02-22] MEDS: Aspirin 81mg Chewable Tab PO SCH (15:28)
--- NOTE | 2016-02-22 21:22 | Progress Notes ---
PSYCHIATRIC PROGRESS NOTE TIME PATIENT SEEN: 11:00 a.m. SUBJECTIVE: Staff was spoken to. The patient is interviewed. Mood is noted to be irritable. Affect is constricted. The patient is still confused and acting very bizarre. The patient has been defecating on self and has been trying to pull the clothes off. The patient is currently on olanzapine and does not seem to be responding and hence we have decided to discontinue the olanzapine and then start the patient on Seroquel. I encouraged the patient to verbalize the concerns rather than to act out. The patient is not ready to be discharged to a lower level of care because of his gross psychosis. JOB# [id number]
[2016-02-23] MEDS: Aspirin 81mg Chewable Tab PO SCH (10:34)
--- NOTE | 2016-02-23 15:32 | Internal Medicine Prog Note ---
Internal Medicine Subjective - Subjective Service Date: 02/23/16 Patient seen and examined:: with staff Patient is:: awake Per staff patient is:: no adverse event Internal Medicine Objective - Results Result Diagrams: 02/19/16 08:25 02/19/16 05:00 Recent Labs: Laboratory Last Values WBC 7.1 Th/cmm (4.8-10.8) 02/19/16 08:25 RBC 5.38 Mil/cmm (3.80-5.80) 02/19/16 08:25 Hgb 16.3 gm/dL (12.6-17.4) 02/19/16 08:25 Hct 48.1 % (39.0-49.0) 02/19/16 08:25 MCV 89.4 fl (80-99) 02/19/16 08:25 MCH 30.2 pg (27.0-31.0) 02/19/16 08:25 MCHC Differential 33.8 pg (28.0-36.0) 02/19/16 08:25 RDW 12.6 % (11.5-20.0) 02/19/16 08:25 Plt Count 106 Th/cmm (150-400) L D 02/19/16 08:25 MPV 10.7 fl 02/19/16 08:25 Neutrophils % 60.4 % (40.0-80.0) 02/19/16 08:25 Band Neutrophils % 0 % (0-10) 02/10/16 09:30 Lymphocytes % 23.2 % (20.0-50.0) 02/19/16 08:25 Monocytes % 6.3 % (2.0-10.0) 02/19/16 08:25 Eosinophils % 5.1 % (0.0-5.0) H 02/19/16 08:25 Basophils % 5.0 % (0.0-2.0) H 02/19/16 08:25 Neutrophils (Manual) 40 % (40-80) 02/10/16 09:30 Lymphocytes 45 % (20-50) 02/10/16 09:30 Monocytes 15 % (2-10) H 02/10/16 09:30 ESR 5 mm/hr (0-20) 02/03/16 10:30 Sodium 138 mEq/L (136-145) 02/19/16 05:00 Potassium 4.0 mEq/L (3.5-5.1) 02/19/16 05:00 Chloride 99 mEq/L (98-107) 02/19/16 05:00 Carbon Dioxide 28.1 mEq/L (21.0-31.0) 02/19/16 05:00 Anion Gap 14.9 (7.0-16.0) 02/19/16 05:00 BUN 25 mg/dL (7-25) 02/19/16 05:00 Creatinine 1.2 mg/dL (0.7-1.3) 02/19/16 05:00 Est GFR ( Amer) TNP 02/19/16 05:00 Est GFR (Non-Af Amer) TNP 02/19/16 05:00 BUN/Creatinine Ratio 20.8 02/19/16 05:00 Glucose 94 mg/dL (70-105) 02/19/16 05:00 Calcium 9.6 mg/dL (8.6-10.3) 02/19/16 05:00 Total Bilirubin 0.9 mg/dL (0.3-1.0) 02/19/16 05:00 AST 53 U/L (13-39) H 02/19/16 07:17 ALT 19 U/L (7-52) 02/19/16 07:17 Alkaline Phosphatase 58 U/L (34-104) 02/19/16 05:00 Creatine Kinase 622 U/L (30-223) H 02/19/16 06:00 CK-MB (CK-2) 21.7 ng/mL (0.6-6.3) H 02/19/16 06:00 Total Protein 8.0 gm/dL (6.0-8.3) 02/19/16 05:00 Albumin 4.8 gm/dL (4.2-5.5) 02/19/16 05:00 Globulin 3.2 gm/dL 02/19/16 05:00 Albumin/Globulin Ratio 1.5 (1.0-1.8) 02/19/16 05:00 Vitamin B12 1058 pg/mL (211-946) H 02/03/16 10:30 Folic Acid 20.0 ng/mL (>3.0) 02/03/16 10:30 TSH 4.40 uIU/ml (0.34-5.60) 02/03/16 10:30 Valproic Acid 57.2 ug/mL (50.0-100.0) 02/19/16 07:17 JAMI Screen Negative 02/03/16 10:30 RPR NONREACTIVE (NONREACTIVE) 02/03/16 10:30 - Physical Exam Vitals and I&O: Vital Signs Temp 0 F 02/23/16 06:21 Pulse 95 02/22/16 16:09 Resp 20 02/22/16 16:09 BP 114/64 02/22/16 16:09 Pulse Ox 97 02/22/16 16:09 Intake & Output 02/22/16 02/23/16 02/23/16 18:59 06:59 18:59 Intake Total 600 120 Output Total 1 Balance 600 119 Intake: Oral 600 120 Output: Stool 1 Other: # Voids 3 3 # Bowel Movements 1 0 Stool Characteristics Soft Soft Soft Active Medications: Current Medications Acetaminophen (Tylenol) 650 mg PO Q6H PRN PRN Reason: Pain (Mild) Stop: 04/03/16 10:07 Aspirin (Aspirin Chewable) 81 mg PO DAILY [facility] Stop: 04/04/16 08:59 Last Admin: 02/23/16 10:34 Dose: 81 mg Divalproex Sodium (Depakote Sprinkle) 500 mg PO BID [facility] PRN Reason: Protocol Stop: 04/15/16 16:59 Last Admin: 02/23/16 10:34 Dose: 500 mg Haloperidol (Haldol) 0.5 mg PO Q6H PRN; Protocol PRN Reason: Agitation Stop: 04/22/16 11:44 Last Admin: 02/23/16 10:34 Dose: 0.5 mg Lisinopril (Zestril) 2.5 mg PO DAILY [facility] Stop: 04/04/16 08:59 Last Admin: 02/23/16 14:56 Dose: Not Given Loperamide HCl (Imodium) 2 mg PO DAILY PRN PRN Reason: Diarrhea Stop: 04/21/16 18:52 Quetiapine Fumarate (Seroquel) 25 mg PO HS [facility] PRN Reason: Protocol Stop: 04/22/16 20:59 Last Admin: 02/22/16 20:29 Dose: 25 mg General: alert HEENT: NC/AT, PERRLA Neck: Supple Lungs: CTAB Cardiovascular: RRR, Normal S1, Normal S2, without murmur Abdomen: soft non-tender Extremities: clear Internal Medicine Assmt/Plan - Assessment Assessment: HTN DJD PSYCHOTIC DISORDER CVA - Plan Plan: fall precautions continue current meds cpm
--- NOTE | 2016-02-24 01:00 | Progress Notes ---
PSYCHIATRIC PROGRESS NOTE TIME PATIENT SEEN: 4:30 p.m. SUBJECTIVE: Staff was spoken to. The patient is interviewed. Mood is noted to be irritable. Affect is constricted. Insight and judgment noted to be impaired. Impulse control seems to be poor. Coping skills are also noted to be poor. The patient has been acting very bizarre. The patient has been smearing the feces on the gibson and the patient needs to be redirected. No side effects to the medications are noted. In view of the patient's aggressive behavior and agitation, it is decided to increase the dose of the Haldol to 1 mg q.6 p.r.n. and follow the patient up. JOB# [id number]
[2016-02-24] MEDS: Aspirin 81mg Chewable Tab PO SCH (10:20)
--- NOTE | 2016-02-24 16:14 | Internal Medicine Prog Note ---
Internal Medicine Subjective - Subjective Service Date: 02/24/16 Patient seen and examined:: without staff Patient is:: awake Per staff patient is:: no adverse event Internal Medicine Objective - Results Result Diagrams: 02/19/16 08:25 02/19/16 05:00 Recent Labs: Laboratory Last Values WBC 7.1 Th/cmm (4.8-10.8) 02/19/16 08:25 RBC 5.38 Mil/cmm (3.80-5.80) 02/19/16 08:25 Hgb 16.3 gm/dL (12.6-17.4) 02/19/16 08:25 Hct 48.1 % (39.0-49.0) 02/19/16 08:25 MCV 89.4 fl (80-99) 02/19/16 08:25 MCH 30.2 pg (27.0-31.0) 02/19/16 08:25 MCHC Differential 33.8 pg (28.0-36.0) 02/19/16 08:25 RDW 12.6 % (11.5-20.0) 02/19/16 08:25 Plt Count 106 Th/cmm (150-400) L D 02/19/16 08:25 MPV 10.7 fl 02/19/16 08:25 Neutrophils % 60.4 % (40.0-80.0) 02/19/16 08:25 Band Neutrophils % 0 % (0-10) 02/10/16 09:30 Lymphocytes % 23.2 % (20.0-50.0) 02/19/16 08:25 Monocytes % 6.3 % (2.0-10.0) 02/19/16 08:25 Eosinophils % 5.1 % (0.0-5.0) H 02/19/16 08:25 Basophils % 5.0 % (0.0-2.0) H 02/19/16 08:25 Neutrophils (Manual) 40 % (40-80) 02/10/16 09:30 Lymphocytes 45 % (20-50) 02/10/16 09:30 Monocytes 15 % (2-10) H 02/10/16 09:30 ESR 5 mm/hr (0-20) 02/03/16 10:30 Sodium 138 mEq/L (136-145) 02/19/16 05:00 Potassium 4.0 mEq/L (3.5-5.1) 02/19/16 05:00 Chloride 99 mEq/L (98-107) 02/19/16 05:00 Carbon Dioxide 28.1 mEq/L (21.0-31.0) 02/19/16 05:00 Anion Gap 14.9 (7.0-16.0) 02/19/16 05:00 BUN 25 mg/dL (7-25) 02/19/16 05:00 Creatinine 1.2 mg/dL (0.7-1.3) 02/19/16 05:00 Est GFR ( Amer) TNP 02/19/16 05:00 Est GFR (Non-Af Amer) TNP 02/19/16 05:00 BUN/Creatinine Ratio 20.8 02/19/16 05:00 Glucose 94 mg/dL (70-105) 02/19/16 05:00 Calcium 9.6 mg/dL (8.6-10.3) 02/19/16 05:00 Total Bilirubin 0.9 mg/dL (0.3-1.0) 02/19/16 05:00 AST 53 U/L (13-39) H 02/19/16 07:17 ALT 19 U/L (7-52) 02/19/16 07:17 Alkaline Phosphatase 58 U/L (34-104) 02/19/16 05:00 Creatine Kinase 622 U/L (30-223) H 02/19/16 06:00 CK-MB (CK-2) 21.7 ng/mL (0.6-6.3) H 02/19/16 06:00 Total Protein 8.0 gm/dL (6.0-8.3) 02/19/16 05:00 Albumin 4.8 gm/dL (4.2-5.5) 02/19/16 05:00 Globulin 3.2 gm/dL 02/19/16 05:00 Albumin/Globulin Ratio 1.5 (1.0-1.8) 02/19/16 05:00 Vitamin B12 1058 pg/mL (211-946) H 02/03/16 10:30 Folic Acid 20.0 ng/mL (>3.0) 02/03/16 10:30 TSH 4.40 uIU/ml (0.34-5.60) 02/03/16 10:30 Valproic Acid 57.2 ug/mL (50.0-100.0) 02/19/16 07:17 JAMI Screen Negative 02/03/16 10:30 RPR NONREACTIVE (NONREACTIVE) 02/03/16 10:30 - Physical Exam Vitals and I&O: Vital Signs Temp 0 F 02/23/16 20:06 Pulse 95 02/22/16 16:09 Resp 20 02/22/16 16:09 BP 114/64 02/22/16 16:09 Pulse Ox 97 02/22/16 16:09 Intake & Output 02/23/16 02/24/16 02/24/16 18:59 06:59 18:59 Intake Total 240 Balance 240 Intake: Oral 240 Other: # Voids 3 # Bowel Movements 0 Stool Characteristics Soft Active Medications: Current Medications Acetaminophen (Tylenol) 650 mg PO Q6H PRN PRN Reason: Pain (Mild) Stop: 04/03/16 10:07 Aspirin (Aspirin Chewable) 81 mg PO DAILY [facility] Stop: 04/04/16 08:59 Last Admin: 02/24/16 10:20 Dose: Not Given Divalproex Sodium (Depakote Sprinkle) 500 mg PO BID [facility] PRN Reason: Protocol Stop: 04/15/16 16:59 Last Admin: 02/24/16 10:19 Dose: Not Given Haloperidol (Haldol) 1 mg PO Q6H PRN; Protocol PRN Reason: Agitation Stop: 04/22/16 11:44 Lisinopril (Zestril) 2.5 mg PO DAILY [facility] Stop: 04/04/16 08:59 Last Admin: 02/24/16 10:19 Dose: Not Given Loperamide HCl (Imodium) 2 mg PO DAILY PRN PRN Reason: Diarrhea Stop: 04/21/16 18:52 Quetiapine Fumarate (Seroquel) 25 mg PO HS [facility] PRN Reason: Protocol Stop: 04/22/16 20:59 Last Admin: 02/23/16 20:51 Dose: Not Given General: alert HEENT: NC/AT, PERRLA Neck: Supple Lungs: CTAB Cardiovascular: RRR, Normal S1, Normal S2, without murmur Abdomen: soft non-tender Internal Medicine Assmt/Plan - Assessment Assessment: HTN DJD PSYCHOTIC DISORDER CVA - Plan Plan: fall precautions continue current meds cpm
--- NOTE | 2016-02-25 00:40 | Progress Notes ---
PSYCHIATRIC PROGRESS NOTE TIME PATIENT SEEN: 8:45 a.m. SUBJECTIVE: Staff was spoken to. The patient is interviewed. Mood is noted to be irritable. Affect is constricted. The patient is still acting very bizarre. The patient has been playing with the feces and the patient needs to be redirected. No side effects to the medications are noted at this time. ASSESSMENT: The patient is still psychotic and impulsive. PLAN: To continue the patient with the current medications. The patient was on Zyprexa that has been discontinued and the patient has been placed on the Haldol on a p.r.n. basis and the patient is also being given Seroquel at nighttime. The patient has been able to tolerate the medication. The patient has been on Depakote 500 mg twice a day and has been able to tolerate the medication and blood level of this medication is going to be looked into. Plan to closely monitor the patient with these medications and followup. JOB# [id number]
[2016-02-25] MEDS: Aspirin 81mg Chewable Tab PO SCH (10:38)
--- NOTE | 2016-02-25 15:17 | Internal Medicine Prog Note ---
Internal Medicine Subjective - Subjective Service Date: 02/25/16 Patient seen and examined:: with staff Patient is:: awake Per staff patient is:: no adverse event Internal Medicine Objective - Results Result Diagrams: 02/19/16 08:25 02/19/16 05:00 Recent Labs: Laboratory Last Values WBC 7.1 Th/cmm (4.8-10.8) 02/19/16 08:25 RBC 5.38 Mil/cmm (3.80-5.80) 02/19/16 08:25 Hgb 16.3 gm/dL (12.6-17.4) 02/19/16 08:25 Hct 48.1 % (39.0-49.0) 02/19/16 08:25 MCV 89.4 fl (80-99) 02/19/16 08:25 MCH 30.2 pg (27.0-31.0) 02/19/16 08:25 MCHC Differential 33.8 pg (28.0-36.0) 02/19/16 08:25 RDW 12.6 % (11.5-20.0) 02/19/16 08:25 Plt Count 106 Th/cmm (150-400) L D 02/19/16 08:25 MPV 10.7 fl 02/19/16 08:25 Neutrophils % 60.4 % (40.0-80.0) 02/19/16 08:25 Band Neutrophils % 0 % (0-10) 02/10/16 09:30 Lymphocytes % 23.2 % (20.0-50.0) 02/19/16 08:25 Monocytes % 6.3 % (2.0-10.0) 02/19/16 08:25 Eosinophils % 5.1 % (0.0-5.0) H 02/19/16 08:25 Basophils % 5.0 % (0.0-2.0) H 02/19/16 08:25 Neutrophils (Manual) 40 % (40-80) 02/10/16 09:30 Lymphocytes 45 % (20-50) 02/10/16 09:30 Monocytes 15 % (2-10) H 02/10/16 09:30 ESR 5 mm/hr (0-20) 02/03/16 10:30 Sodium 138 mEq/L (136-145) 02/19/16 05:00 Potassium 4.0 mEq/L (3.5-5.1) 02/19/16 05:00 Chloride 99 mEq/L (98-107) 02/19/16 05:00 Carbon Dioxide 28.1 mEq/L (21.0-31.0) 02/19/16 05:00 Anion Gap 14.9 (7.0-16.0) 02/19/16 05:00 BUN 25 mg/dL (7-25) 02/19/16 05:00 Creatinine 1.2 mg/dL (0.7-1.3) 02/19/16 05:00 Est GFR ( Amer) TNP 02/19/16 05:00 Est GFR (Non-Af Amer) TNP 02/19/16 05:00 BUN/Creatinine Ratio 20.8 02/19/16 05:00 Glucose 94 mg/dL (70-105) 02/19/16 05:00 Calcium 9.6 mg/dL (8.6-10.3) 02/19/16 05:00 Total Bilirubin 0.9 mg/dL (0.3-1.0) 02/19/16 05:00 AST 53 U/L (13-39) H 02/19/16 07:17 ALT 19 U/L (7-52) 02/19/16 07:17 Alkaline Phosphatase 58 U/L (34-104) 02/19/16 05:00 Creatine Kinase 622 U/L (30-223) H 02/19/16 06:00 CK-MB (CK-2) 21.7 ng/mL (0.6-6.3) H 02/19/16 06:00 Total Protein 8.0 gm/dL (6.0-8.3) 02/19/16 05:00 Albumin 4.8 gm/dL (4.2-5.5) 02/19/16 05:00 Globulin 3.2 gm/dL 02/19/16 05:00 Albumin/Globulin Ratio 1.5 (1.0-1.8) 02/19/16 05:00 Vitamin B12 1058 pg/mL (211-946) H 02/03/16 10:30 Folic Acid 20.0 ng/mL (>3.0) 02/03/16 10:30 TSH 4.40 uIU/ml (0.34-5.60) 02/03/16 10:30 Valproic Acid 57.2 ug/mL (50.0-100.0) 02/19/16 07:17 JAMI Screen Negative 02/03/16 10:30 RPR NONREACTIVE (NONREACTIVE) 02/03/16 10:30 - Physical Exam Vitals and I&O: Vital Signs Temp 0 F 02/23/16 20:06 Pulse 95 02/22/16 16:09 Resp 20 02/24/16 08:00 BP 114/64 02/22/16 16:09 Pulse Ox 97 02/22/16 16:09 Intake & Output 02/24/16 02/25/16 02/25/16 18:59 06:59 18:59 Intake Total 600 Balance 600 Intake: Oral 600 Other: # Voids 2 # Bowel Movements 0 Stool Characteristics Formed Active Medications: Current Medications Acetaminophen (Tylenol) 650 mg PO Q6H PRN PRN Reason: Pain (Mild) Stop: 04/03/16 10:07 Aspirin (Aspirin Chewable) 81 mg PO DAILY [facility] Stop: 04/04/16 08:59 Last Admin: 02/25/16 10:38 Dose: 81 mg Divalproex Sodium (Depakote Sprinkle) 500 mg PO BID [facility] PRN Reason: Protocol Stop: 04/15/16 16:59 Last Admin: 02/25/16 10:39 Dose: 500 mg Haloperidol (Haldol) 1 mg PO Q6H PRN; Protocol PRN Reason: Agitation Stop: 04/22/16 11:44 Lisinopril (Zestril) 2.5 mg PO DAILY [facility] Stop: 04/04/16 08:59 Last Admin: 02/25/16 10:39 Dose: Not Given Loperamide HCl (Imodium) 2 mg PO DAILY PRN PRN Reason: Diarrhea Stop: 04/21/16 18:52 Quetiapine Fumarate (Seroquel) 25 mg PO BID [facility] PRN Reason: Protocol Stop: 04/25/16 08:59 Last Admin: 02/25/16 10:39 Dose: 25 mg General: alert HEENT: NC/AT, PERRLA Neck: Supple Lungs: CTAB Cardiovascular: RRR, Normal S1, Normal S2, without murmur Abdomen: soft non-tender Extremities: clear Neurological: no change Internal Medicine Assmt/Plan - Assessment Assessment: HTN DJD PSYCHOTIC DISORDER CVA - Plan Plan: fall precautions continue current meds cpm
--- NOTE | 2016-02-25 21:46 | Progress Notes ---
PSYCHIATRIC PROGRESS NOTE TIME PATIENT SEEN: 07:45 p.m. SUBJECTIVE: Staff was spoken to. The patient is interviewed. The patient is still very dysphoric and has been pacing most of the time on the unit. The patient has been reported to have slept a little bit better yesterday compared to the other days. The patient still has been having difficult time to cope with the stress. The patient is getting easily irritable and impulsive. No side effects to the medications are noted. The patient is currently on Seroquel 25 mg at bedtime along with the Depakote and the patient's Seroquel is going to be gradually increased to 25 mg twice a day and the Depakote level is going to be obtained. ASSESSMENT: The patient is still impulsive and psychotic and not ready to be discharged to a lower level of care. PLAN: To continue the patient with the current medications and followup. JOB# [id number]
[2016-02-26] MEDS: Aspirin 81mg Chewable Tab PO SCH (10:00)
--- NOTE | 2016-02-26 14:40 | Internal Medicine Prog Note ---
Internal Medicine Subjective - Subjective Service Date: 02/26/16 Patient seen and examined:: with staff Patient is:: awake Per staff patient is:: no adverse event Internal Medicine Objective - Results Result Diagrams: 02/19/16 08:25 02/19/16 05:00 Recent Labs: Laboratory Last Values WBC 7.1 Th/cmm (4.8-10.8) 02/19/16 08:25 RBC 5.38 Mil/cmm (3.80-5.80) 02/19/16 08:25 Hgb 16.3 gm/dL (12.6-17.4) 02/19/16 08:25 Hct 48.1 % (39.0-49.0) 02/19/16 08:25 MCV 89.4 fl (80-99) 02/19/16 08:25 MCH 30.2 pg (27.0-31.0) 02/19/16 08:25 MCHC Differential 33.8 pg (28.0-36.0) 02/19/16 08:25 RDW 12.6 % (11.5-20.0) 02/19/16 08:25 Plt Count 106 Th/cmm (150-400) L D 02/19/16 08:25 MPV 10.7 fl 02/19/16 08:25 Neutrophils % 60.4 % (40.0-80.0) 02/19/16 08:25 Band Neutrophils % 0 % (0-10) 02/10/16 09:30 Lymphocytes % 23.2 % (20.0-50.0) 02/19/16 08:25 Monocytes % 6.3 % (2.0-10.0) 02/19/16 08:25 Eosinophils % 5.1 % (0.0-5.0) H 02/19/16 08:25 Basophils % 5.0 % (0.0-2.0) H 02/19/16 08:25 Neutrophils (Manual) 40 % (40-80) 02/10/16 09:30 Lymphocytes 45 % (20-50) 02/10/16 09:30 Monocytes 15 % (2-10) H 02/10/16 09:30 ESR 5 mm/hr (0-20) 02/03/16 10:30 Sodium 138 mEq/L (136-145) 02/19/16 05:00 Potassium 4.0 mEq/L (3.5-5.1) 02/19/16 05:00 Chloride 99 mEq/L (98-107) 02/19/16 05:00 Carbon Dioxide 28.1 mEq/L (21.0-31.0) 02/19/16 05:00 Anion Gap 14.9 (7.0-16.0) 02/19/16 05:00 BUN 25 mg/dL (7-25) 02/19/16 05:00 Creatinine 1.2 mg/dL (0.7-1.3) 02/19/16 05:00 Est GFR ( Amer) TNP 02/19/16 05:00 Est GFR (Non-Af Amer) TNP 02/19/16 05:00 BUN/Creatinine Ratio 20.8 02/19/16 05:00 Glucose 94 mg/dL (70-105) 02/19/16 05:00 Calcium 9.6 mg/dL (8.6-10.3) 02/19/16 05:00 Total Bilirubin 0.9 mg/dL (0.3-1.0) 02/19/16 05:00 AST 53 U/L (13-39) H 02/19/16 07:17 ALT 19 U/L (7-52) 02/19/16 07:17 Alkaline Phosphatase 58 U/L (34-104) 02/19/16 05:00 Creatine Kinase 622 U/L (30-223) H 02/19/16 06:00 CK-MB (CK-2) 21.7 ng/mL (0.6-6.3) H 02/19/16 06:00 Total Protein 8.0 gm/dL (6.0-8.3) 02/19/16 05:00 Albumin 4.8 gm/dL (4.2-5.5) 02/19/16 05:00 Globulin 3.2 gm/dL 02/19/16 05:00 Albumin/Globulin Ratio 1.5 (1.0-1.8) 02/19/16 05:00 Vitamin B12 1058 pg/mL (211-946) H 02/03/16 10:30 Folic Acid 20.0 ng/mL (>3.0) 02/03/16 10:30 TSH 4.40 uIU/ml (0.34-5.60) 02/03/16 10:30 Valproic Acid 57.2 ug/mL (50.0-100.0) 02/19/16 07:17 JAMI Screen Negative 02/03/16 10:30 RPR NONREACTIVE (NONREACTIVE) 02/03/16 10:30 - Physical Exam Vitals and I&O: Vital Signs Temp 0 F 02/23/16 20:06 Pulse 95 02/22/16 16:09 Resp 20 02/24/16 08:00 BP 114/64 02/22/16 16:09 Pulse Ox 97 02/22/16 16:09 Intake & Output 02/25/16 02/26/16 02/26/16 18:59 06:59 18:59 Intake Total 1000 Balance 1000 Intake: Oral 1000 Other: # Voids 3 2 # Bowel Movements 1 Stool Characteristics Soft Soft Active Medications: Current Medications Acetaminophen (Tylenol) 650 mg PO Q6H PRN PRN Reason: Pain (Mild) Stop: 04/03/16 10:07 Aspirin (Aspirin Chewable) 81 mg PO DAILY [facility] Stop: 04/04/16 08:59 Last Admin: 02/26/16 10:00 Dose: 81 mg Divalproex Sodium (Depakote Sprinkle) 500 mg PO BID [facility] PRN Reason: Protocol Stop: 04/15/16 16:59 Last Admin: 02/26/16 10:00 Dose: 500 mg Haloperidol (Haldol) 1 mg PO Q6H PRN; Protocol PRN Reason: Agitation Stop: 04/22/16 11:44 Lisinopril (Zestril) 2.5 mg PO DAILY [facility] Stop: 04/04/16 08:59 Last Admin: 02/26/16 10:00 Dose: Not Given Loperamide HCl (Imodium) 2 mg PO DAILY PRN PRN Reason: Diarrhea Stop: 04/21/16 18:52 Quetiapine Fumarate (Seroquel) 25 mg PO BID [facility] PRN Reason: Protocol Stop: 04/25/16 08:59 Last Admin: 02/26/16 10:00 Dose: 25 mg General: alert HEENT: NC/AT, PERRLA Neck: Supple Lungs: CTAB Cardiovascular: RRR, Normal S1, Normal S2, without murmur Abdomen: soft non-tender Internal Medicine Assmt/Plan - Assessment Assessment: HTN DJD PSYCHOTIC DISORDER CVA - Plan Plan: fall precautions continue current meds cpm
--- NOTE | 2016-02-26 23:33 | Progress Notes ---
PSYCHIATRIC PROGRESS NOTE TIME PATIENT SEEN: 8:15 a.m. SUBJECTIVE: Staff was spoken to. The patient is interviewed. Mood is noted to be irritable. Affect is constricted. Insight and judgment at this time are noted to be impaired. Impulse control seems to be poor. Coping skills are noted to be very poor. The patient has changed from his regressive behavior. The patient is not smearing the feces and trying to play with them. The patient could be redirectable at this time. ASSESSMENT: The patient has psychosis. The patient is still psychotic and regressed. PLAN: To continue the patient with the current medications. I encouraged the patient to verbalize the concerns rather than to act out. JOB# [id number]
[2016-02-27] MEDS: Aspirin 81mg Chewable Tab PO SCH (09:02)
--- NOTE | 2016-02-27 12:04 | Internal Medicine Prog Note ---
Internal Medicine Subjective - Subjective Service Date: 02/27/16 Patient seen and examined:: with staff Patient is:: awake Per staff patient is:: no adverse event Internal Medicine Objective - Results Result Diagrams: 02/19/16 08:25 02/19/16 05:00 Recent Labs: Laboratory Last Values WBC 7.1 Th/cmm (4.8-10.8) 02/19/16 08:25 RBC 5.38 Mil/cmm (3.80-5.80) 02/19/16 08:25 Hgb 16.3 gm/dL (12.6-17.4) 02/19/16 08:25 Hct 48.1 % (39.0-49.0) 02/19/16 08:25 MCV 89.4 fl (80-99) 02/19/16 08:25 MCH 30.2 pg (27.0-31.0) 02/19/16 08:25 MCHC Differential 33.8 pg (28.0-36.0) 02/19/16 08:25 RDW 12.6 % (11.5-20.0) 02/19/16 08:25 Plt Count 106 Th/cmm (150-400) L D 02/19/16 08:25 MPV 10.7 fl 02/19/16 08:25 Neutrophils % 60.4 % (40.0-80.0) 02/19/16 08:25 Band Neutrophils % 0 % (0-10) 02/10/16 09:30 Lymphocytes % 23.2 % (20.0-50.0) 02/19/16 08:25 Monocytes % 6.3 % (2.0-10.0) 02/19/16 08:25 Eosinophils % 5.1 % (0.0-5.0) H 02/19/16 08:25 Basophils % 5.0 % (0.0-2.0) H 02/19/16 08:25 Neutrophils (Manual) 40 % (40-80) 02/10/16 09:30 Lymphocytes 45 % (20-50) 02/10/16 09:30 Monocytes 15 % (2-10) H 02/10/16 09:30 ESR 5 mm/hr (0-20) 02/03/16 10:30 Sodium 138 mEq/L (136-145) 02/19/16 05:00 Potassium 4.0 mEq/L (3.5-5.1) 02/19/16 05:00 Chloride 99 mEq/L (98-107) 02/19/16 05:00 Carbon Dioxide 28.1 mEq/L (21.0-31.0) 02/19/16 05:00 Anion Gap 14.9 (7.0-16.0) 02/19/16 05:00 BUN 25 mg/dL (7-25) 02/19/16 05:00 Creatinine 1.2 mg/dL (0.7-1.3) 02/19/16 05:00 Est GFR ( Amer) TNP 02/19/16 05:00 Est GFR (Non-Af Amer) TNP 02/19/16 05:00 BUN/Creatinine Ratio 20.8 02/19/16 05:00 Glucose 94 mg/dL (70-105) 02/19/16 05:00 Calcium 9.6 mg/dL (8.6-10.3) 02/19/16 05:00 Total Bilirubin 0.9 mg/dL (0.3-1.0) 02/19/16 05:00 AST 53 U/L (13-39) H 02/19/16 07:17 ALT 19 U/L (7-52) 02/19/16 07:17 Alkaline Phosphatase 58 U/L (34-104) 02/19/16 05:00 Creatine Kinase 622 U/L (30-223) H 02/19/16 06:00 CK-MB (CK-2) 21.7 ng/mL (0.6-6.3) H 02/19/16 06:00 Total Protein 8.0 gm/dL (6.0-8.3) 02/19/16 05:00 Albumin 4.8 gm/dL (4.2-5.5) 02/19/16 05:00 Globulin 3.2 gm/dL 02/19/16 05:00 Albumin/Globulin Ratio 1.5 (1.0-1.8) 02/19/16 05:00 Vitamin B12 1058 pg/mL (211-946) H 02/03/16 10:30 Folic Acid 20.0 ng/mL (>3.0) 02/03/16 10:30 TSH 4.40 uIU/ml (0.34-5.60) 02/03/16 10:30 Valproic Acid 57.2 ug/mL (50.0-100.0) 02/19/16 07:17 JAMI Screen Negative 02/03/16 10:30 RPR NONREACTIVE (NONREACTIVE) 02/03/16 10:30 - Physical Exam Vitals and I&O: Vital Signs Temp 0 F 02/23/16 20:06 Pulse 75 02/27/16 09:03 Resp 20 02/24/16 08:00 BP 123/75 02/27/16 09:03 Pulse Ox 97 02/22/16 16:09 Intake & Output 02/26/16 02/27/16 02/27/16 18:59 06:59 18:59 Intake Total 720 120 Balance 720 120 Intake: Oral 720 120 Other: # Voids 3 1 2 # Bowel Movements 1 Stool Characteristics Soft Active Medications: Current Medications Acetaminophen (Tylenol) 650 mg PO Q6H PRN PRN Reason: Pain (Mild) Stop: 04/03/16 10:07 Aspirin (Aspirin Chewable) 81 mg PO DAILY [facility] Stop: 04/04/16 08:59 Last Admin: 02/27/16 09:02 Dose: 81 mg Divalproex Sodium (Depakote Sprinkle) 500 mg PO BID [facility] PRN Reason: Protocol Stop: 04/15/16 16:59 Last Admin: 02/27/16 09:03 Dose: 500 mg Haloperidol (Haldol) 1 mg PO Q6H PRN; Protocol PRN Reason: Agitation Stop: 04/22/16 11:44 Last Admin: 02/27/16 09:03 Dose: 1 mg Lisinopril (Zestril) 2.5 mg PO DAILY [facility] Stop: 04/04/16 08:59 Last Admin: 02/27/16 09:03 Dose: Not Given Loperamide HCl (Imodium) 2 mg PO DAILY PRN PRN Reason: Diarrhea Stop: 04/21/16 18:52 Quetiapine Fumarate (Seroquel) 25 mg PO BID [facility] PRN Reason: Protocol Stop: 04/25/16 08:59 Last Admin: 02/27/16 09:03 Dose: 25 mg General: alert HEENT: NC/AT, PERRLA Neck: Supple Lungs: CTAB Cardiovascular: RRR, Normal S1, Normal S2, without murmur Abdomen: soft non-tender Extremities: clear Internal Medicine Assmt/Plan - Assessment Assessment: HTN DJD PSYCHOTIC DISORDER CVA - Plan Plan: fall precautions continue current meds cpm
--- NOTE | 2016-02-28 07:37 | Progress Notes ---
TIME PATIENT SEEN: 01:15 p.m. SUBJECTIVE: Staff was spoken to. The patient is interviewed. Mood is noted to be irritable. Affect is constricted. The patient has been less psychotic compared to the previous days. The patient has not been playing with the feces. No side effects to the medications are noted. The patient has been able to tolerate the Seroquel. The patient's coping skills are noted to be improving at this time. The patient, however, continues to be demented. ASSESSMENT: The patient is still paranoid. PLAN: To continue the patient with Seroquel. I encouraged the patient to verbalize the concerns rather than to act out. JOB# [id number]
[2016-02-28] MEDS: Aspirin 81mg Chewable Tab PO SCH (08:37)
[2016-02-29] MEDS: Aspirin 81mg Chewable Tab PO SCH (09:04)
--- NOTE | 2016-02-29 21:28 | Progress Notes ---
PSYCHIATRIC PROGRESS NOTE TIME PATIENT SEEN: 11:15 a.m. SUBJECTIVE: Staff was spoken to. The patient is interviewed. Mood is noted to be irritable. Affect is constricted. Coping skills are noted to be poor. Sleep and appetite are also noted to be very poor. The patient is urinating on himself. The patient has no insight into his illness. ASSESSMENT: The patient is still impulsive. PLAN: To continue the patient with the increased dose of the Seroquel and closely monitor the patient. [facility]# [id number]
[2016-03-01] MEDS: Aspirin 81mg Chewable Tab PO SCH (08:33)
--- NOTE | 2016-03-01 20:58 | Progress Notes ---
PSYCHIATRIC PROGRESS NOTE TIME PATIENT SEEN: 8:30 a.m. SUBJECTIVE: Staff was spoken to. The patient is interviewed. Mood continues to be dysphoric and the patient's family wants the patient to have a CT, but I do not know to what extent the CT is going to helping the patient. The patient has been referred to the primary care physician with regards to need for the CT at this time. The patient continues to be irritable and angry. No side effects to the medications are noted. ASSESSMENT: The patient is still disoriented and has been urinating on self. PLAN: To continue the patient with the current medications. I encouraged the patient to verbalize the concerns rather than to act out. [facility]# [id number]
[2016-03-02] MEDS: Aspirin 81mg Chewable Tab PO SCH (08:31)
[2016-03-02] MEDS ORDERED: Haloperidol Lactate 5 mg/mL 1mL Vial ONE (12:01)
[2016-03-02] MEDS ORDERED: Haloperidol Lactate 5 mg/mL 1mL Vial IM ONE (12:02)
--- NOTE | 2016-03-02 14:38 | Diagnostic Imaging Report ---
Head CT without intravenous contrast Indication: Fall Comparison: None Technique: Axial images were obtained from the vertex to the skull base without IV contrast. Coronal reconstructions were made. Total DLP: 605, [id number] FINDINGS: Images of the brain obtained without contrast demonstrate no acute hemorrhage. No mass lesions identified. The images of the brain obtained without contrast demonstrate no evidence of acute hemorrhage. Atrophy is noted. Mild white matter disease is noted. The ventricles and basal cisterns are patent. No mass effect or midline shift. Atherosclerosis is noted. No evidence of a skull fracture. There is partial opacification of left sphenoid sinus. Additional mucosal thickening of paranasal sinuses are noted. No focal soft tissue swelling. IMPRESSION: No evidence of an acute intracranial hemorrhage. Mild supratentorial white matter disease which is nonspecific and may be due to chronic microvessel ischemia.. Atrophy. Atherosclerotic vascular disease. Mild sinus disease greatest within the left sphenoid sinus.
[2016-03-03] MEDS: Aspirin 81mg Chewable Tab PO SCH (09:28)
--- NOTE | 2016-03-03 18:13 | Discharge Summary ---
IDENTIFYING DATA: The patient is an 80-year-old admitted on 5150. CHIEF COMPLAINT: "I do not know." DIAGNOSES AT THE TIME OF ADMISSION: AXIS I: Psychotic disorder, not otherwise specified; dementia of the Alzheimer type. AXIS II: None. AXIS III: Defer. HISTORY OF PRESENT ILLNESS: Please refer to the 02/05/[address] Quinones. HOSPITAL COURSE AND RESPONSE TO TREATMENT: The patient has been observed on the inpatient unit, provided with supportive psychotherapy. The patient continues to be very agitated, screaming, and yelling most of the time. The patient has been medicated initially with Zyprexa that was not effective. The patient also has been placed on the Depakote, which was given 500 mg twice a day, and Haldol has been given on a p.r.n. basis, and the patient has been discontinued off the haloperidol, and the patient has been placed on the Seroquel, which is given 50 mg twice a day. With these medications, the patient has been observed. The patient's family is worried about the patient having medical issues and they requested a CAT scan that was done and is noted to be within normal limits. The patient has been stabilizing and hence was discharged on 03/03/2016, to [facility] for further followup by Dr. Quinones. MENTAL STATUS EXAMINATION: At the time of discharge, the patient's mood is noted to be less irritable. Affect is appropriate. Not suicidal or homicidal. Insight and judgment noted to be improving. Impulse control seems to be fair. The patient however has a tendency to urinate on self. No major behavioral problems are noted today. DIAGNOSES AT THE TIME OF DISCHARGE: AXIS I: A. Psychotic disorder, unspecified. B. Dementia and behavioral changes, secondary ____. MEDICAL DIAGNOSIS: As per Dr. Estes. TREATMENT PLAN: The patient is going to be followed up by Dr. Quinones on outpatient basis. JOB# [id number]
== END 2016-03-03 13:18 | DRG 57 ==
LOC: GERO 08:30
PROVIDERS: ADMIT Psychiatry & Neurology Psychiatry; ATTEND Psychiatry & Neurology Psychiatry
DX: G30.9 Alzheimer's disease, unspecified (principal); F02.81 Dementia in other diseases classified elsewhere, unspecified severity, with behavioral disturbance; M62.82 Rhabdomyolysis; M19.90 Unspecified osteoarthritis, unspecified site; I10 Essential (primary) hypertension; F29 Unspecified psychosis not due to a substance or known physiological condition; E78.5 Hyperlipidemia, unspecified
CPT/HCPCS: 36415-UA; 70450-TC; 80048-TC; 80053-TC; 80164-TC; 82550-TC; 82553; 82607-90; 82746-90; 84443-TC; 84450-TC; 84460-TC; 85007-TC; 85025-TC; 85027-TC; 85652-TC; 86038-90; 86592-TC; J1200; J1630; J2060; Z7610